=== PATIENT | male | born 1995 | race Caucasian/White ===

== ENCOUNTER 2024-03-02 00:05 | Emergency (ER) | payer BC, SELFPAY ==
--- NOTE | ~2024-03-02 | XR_ITS ---
XR hand RT min 3V 03/02/2024 00:58 INDICATION: Right hand pain PROCEDURE: 3 views right hand COMPARISON: No prior studies for comparison. FINDINGS: Fracture, dislocation or subluxation is not identified. The soft tissues appear within norm al limits. No foreign bodies are identified. IMPRESSION: 1: NO ACUTE BONE OR JOINT ABNORMALITY IDENTIFIED. Reviewed, dictated and finalized at location B.
[2024-03-02 00:13] VITALS: BP 144/99; PULSE 74; RESP 16; TEMP 36.8; O2SAT 99
[2024-03-02] MEDS: IBUPROFEN 400 MG TABLET 800 MG PO (00:22)
[2024-03-02] MEDS: ACETAMINOPHEN 500 MG TABLET 1000 MG PO (00:23)
--- NOTE | 2024-03-02 00:30 | ED.UPPEXIN ---
HPI - Extremity Injury (Upper) General Chief Complaint: Extremity Injury, Upper Stated Complaint: arm pain Time Seen by Provider: 03/02/24 00:10 Source: patient Mode of arrival: ambulatory Limitations: no limitations History of Present Illness HPI narrative: This is a 28-year-old male who presents to the ED for chief complaint of right 3rd digit injury occurring around 1900 tonight. Patient states he accidentally smashed his finger in the car door. Reports pain and swelling to the distal right 3rd digit. Denies any further sites of pain or injury. States that he did not take any NSAIDs because he read online that NSAIDs do not treat nerve pain. Reports that he has had shooting pains from his finger into his right arm. Related Data Allergies Allergy/AdvReac Type Severity Reaction Status Date / Time No Known Allergies Allergy Verified 03/02/24 00:19 Review of Systems Review of Systems: All systems as dictated in HPI Exam Narrative: GENERAL: Well-appearing, well-nourished, and in no acute distress. HEAD: Normocephalic, atraumatic. EYES: PERRLA and EOMI. ENT: Nares clear, no rhinorrhea or epistaxis. Mucous membranes moist. Oropharynx without tonsillar hypertrophy exudate or other lesions. NECK: Supple. No adenopathy or masses. CHEST: No respiratory distress. Clear to auscultation. No wheezes rales or rhonchi HEART: Regular rate and rhythm. No murmur heard. Normal peripheral pulses. ABDOMEN: Soft, nontender, nondistended, normal active bowel sounds. MSK: RUE: there is swelling and tenderness to the distal right 3rd digit. Very small subungual hematoma noted proximally. Range of motion is nearly full L UE: benign SKIN: Warm, dry, no rash. NEURO: Alert and oriented x4. No focal deficits. PSYCH: Normal mood and affect. Course Vital Signs Vital signs: Vital Signs Temperature 98.3 F 03/02/24 00:13 Pulse Rate 74 03/02/24 00:13 Respiratory Rate 16 03/02/24 00:13 Blood Pressure 144/99 H 03/02/24 00:13 Pulse Oximetry 99 03/02/24 00:13 Oxygen Delivery Room Air 03/02/24 00:13 Temperature 98.3 F 03/02/24 00:13 Pulse Rate 74 03/02/24 00:13 Respiratory Rate 16 03/02/24 00:13 Blood Pressure 144/99 H 03/02/24 00:13 Pulse Oximetry 99 03/02/24 00:13 Oxygen Delivery Room Air 03/02/24 00:13 MDM - Extremity Injury (Upper) MDM Narrative Medical decision making narrative: this is a 28-year-old male who presents to the ED for chief complaint of right 3rd finger injury after smashing in a car door tonight. Vitals are normal. No further site of injury. There is a subungual hematoma at the nail. Moderate tenderness. No deformity or nail bed injury. X-ray showed no obvious acute fracture. the subungual hematoma was drained using a Bovie. This provided moderate relief of symptoms. Short course of [place] given for breakthrough pain. Pt will be discharged in stable condition. Return precautions given and supportive measures discussed. Pt is understanding and agreeable with plan for discharge and follow-up with PCP. Discharge Plan Discharge Clinical Impression: Subungual hematoma of digit of hand, Finger injury Patient Disposition: Home, Self-Care Condition: Stable Instructions: Antibiotic Form, Subungual Hematoma (ED) Additional Instructions: your exam and imaging today is reassuring. Symptoms should resolve over the next couple of weeks. Take Tylenol and ibuprofen every 4-6 hours as needed for pain control. Please use Norcosparingly for breakthrough pain. If you have any new or worsening symptoms please return to the ER for further evaluation. Prescriptions: New hydrocodone-acetaminophen 5-325 mg tablet 1 tablet PO Q8H PRN (Reason: pain) Qty: 7 0RF Follow-up/Referrals: UNKNOWN,DOCTOR [Non-Staff] - Stand Alone Forms: Work/School Release IP Time of Disposition: 01:04
== END 2024-03-02 01:11 | disposition home or self-care (01) ==
PROVIDERS: Emergency Provider Physician Assistant; PCP Family Medicine
DX: S60.031A Contusion of right middle finger without damage to nail, initial encounter (principal); V48.4XXA Person boarding or alighting a car injured in noncollision transport accident, initial encounter
CPT/HCPCS: 29130; 73130; 99283; A9270

== ENCOUNTER 2025-03-11 19:35 | Emergency (ER) | payer BC, SELFPAY ==
--- OUTSIDE RECORDS SUMMARY | 2025-03-11 19:41 | XMS_ITS | Clinical Summary ---
Author Organization [facility] Address [address] [place] [address] Phone Care Team Providers Care Java Developer Name Role Phone Crow Ralph MD Primary Care Provider [phone] Social History Tobacco Use Types Packs/Day Years Used Date Smoking Tobacco: Never Assessed Sex and Gender Information Value Date Recorded Sex Assigned at Not on file Legal Sex Male 1:50 PM CDT Gender Identity Not on file Sexual Orientation Not on file Plan of Treatment Health Maintenance Due Date Last Done Comments Hepatitis C Virus (HCV) Screening 1996 Human Papillomavirus (HPV) Immunization (1 - 3-dose SCDM series) 2023 Influenza Immunization (#1) 2025 SARS-COV-2 Immunization (3 - season) 2025 01/05/2022, 12/14/2021 Respiratory Syncytial Virus (RSV) Immunization (Adult) (1 - 1-dose 75+ series) 2071 Hepatitis B Immunization Completed 997, 01/13/1997, 1996 TdaP Immunization Completed 12/14/2021 Meningococcal Immunization (ACWY) Aged Out No longer eligible b ased on patient's age to complete this topic Pneumococcal Immunization Combined Aged Out No longer eligible b ased on patient's age to complete this topic Rotavirus Immunization Aged Out No lo nger eligible based on patient's age to complete this topic Care Teams Java Developer Relationship Specialty [place] [address] [place], [place] [id number] PCP - General Family Medicine 02/09/24
--- OUTSIDE RECORDS SUMMARY | 2025-03-11 19:41 | XMS_ITS | Clinical Summary ---
Author Organization [facility] Address [address] [place] [address] Care Team Providers Care Facilities Director Name Role Phone Unavailable Primary Care Provider Unavailabl e Source Comments [facility],non-owned Affiliates and Associated Physician Practices is amultiple site organization consisting of ambulatory clinics and hospital sitesin [place], [place], [place] and [place]. This disclosure is being madepursuant to the Care Everywhere program and may not contain all information available regarding this patient. Last updated 18.[facility] [employer] Allergies No known active allergies Social History Tobacco Use Types Packs/Day Years Used Date Smoking Tobacco: Never Assessed Sex and Gender Information Value Date Recorded Sex Assigned at Not on file Legal Sex Male 10:59 PM CDT Gender Identity Not on file Sexual Orientation Not on file Last Filed Vital Signs Vital Sign Reading Time Taken Comments Blood Pressure 145/64 09/24/2023 11:03 PM CDT Pulse 86 09/24/2023 11:03 PM CDT Temperature 37 C (98.6 F) 09/24/2023 11:03 PM CDT Respiratory Rate 20 09/24/2023 11:03 PM CDT Oxygen Saturation 99% 09/24/2023 11:03 PM CDT Inhaled Oxygen Concentration - - Weight 79.4 kg (175 lb) 09/24/2023 11:03 PM CDT Height 182.9 cm (6') 09/24/2023 11:03 PM CDT Body Mass Index 23.73 09/24/2023 11:03 PM CDT Plan of Treatment Health Maintenance Due Date Last Done Comments HIV SCREENING 2011 HEPATITIS C SCREENING 08/25/2014 DTAP/TDAP/TD VACCINES (1 - Tdap) 2015 HEPATITIS B VACCINE (1 of 3 - 19+ 3-dose series) 2015 HPV VACCINE (1 - 3-dose SCDM series) 2023 COVID-19 VACCINE (1 - 2023-2 5 season) 2024 DEPRESSION SCREENING 07/03/2024 INFLUENZA VACCINE (#1) 2025 ZOSTER VACCINE (1 of 2) 2046 HIB VACCINE Aged Out No longer eligi ble based on patient's age to complete this topic MENINGOCOCCAL (Group B) VACC INE SHARED DECISION-MAKING Aged Out No longer eligibl e based on patient's age to complete this topic MENINGOCOCCAL GROUPS A/C/Y/W VACCINE Aged Out No longer eligible b ased on patient's age to complete this topic PNEUMOCOCCAL VACCINE Aged Out No long er eligible based on patient's age to complete this topic Insurance [facility] MEDICAID [facility] MEDICAID
[2025-03-11 19:44] VITALS: BP 134/89; PULSE 102; RESP 18; TEMP 37.1; O2SAT 99
--- NOTE | 2025-03-11 19:59 | ED_ITS ---
HPI - General Adult General Chief complaint: Nausea/Vomiting/Diarrhea Stated complaint: Vomiting/Diarrhea Source: patient Mode of arrival: ambulatory Limitations: no limitations History of Present Illness HPI narrative: Patient presents for evaluation of nausea vomiting and diarrhea for the last 3 days. Denies any new foods or medications. No fever, chills, blood in the stool, abdominal pain. No recent sick contacts to his knowledge. He called off from work tonight so came in for a work excuse. He plans on following a BRAT diet. He has contemplated taking imodium but has not done so. Related Data Allergies Allergy/AdvReac Type Severity Reaction Status Date / Time No Known Allergies Allergy Verified 03/11/25 19:44 Review of Systems Review of Systems: CONSTITUTIONAL: Denies fever, chills, or sweats. EYES: Denies visual changes, redness, or discharge. ENT: Denies rhinorrhea, congestion, sore throat, or otalgia. CARDIOVASCULAR: Denies chest pain, palpitations, or edema. RESPIRATORY: Denies cough or dyspnea. GASTROINTESTINAL: Reports nausea, vomiting, diarrhea. Denies abdominal pain GENITOURINARY: Denies dysuria or hematuria. SKIN: Denies rash or itching. MUSCULOSKELETAL: Denies back pain, joint pain, or myalgia. NEUROLOGIC: Denies headache, numbness, dizziness, or weakness. PSYCHIATRIC: Denies anxiety or depression. PMFSH Past Medical History Medical History No pertinent past medical history Surgical History Surgical History No pertinent past surgical history Family History Family History Mother Family history non-contributory Social History Social History (Updated 03/11/25 @ 20:01 by Patrice Bryant, INCOME TAX ANALYST, ) Gender identity (if verbalized by the patient): Male Spiritual care concerns: No Exam Narrative: GENERAL: Well-appearing, well-nourished, and in no acute distress. HEAD: Normocephalic, atraumatic. EYES: PERRLA and EOMI. ENT: Nares clear, no rhinorrhea or epistaxis. Mucous membranes moist. Oropharynx without tonsillar hypertrophy exudate or other lesions. Bilateral TMs pearly soriano nonbulging NECK: Supple. No adenopathy or masses. No carotid bruits or JVD CHEST: Clear to auscultation. No respiratory distress. No wheezes rales or rhonchi HEART: Regular rate and rhythm. No murmur heard. Normal peripheral pulses. ABDOMEN: Soft, nontender, nondistended, normal active bowel sounds. EXTREMITIES: Normal range of motion. No edema. SKIN: Warm, dry, no rash. NEURO: No focal deficits. Alert and oriented x3. PSYCH: Normal mood and affect. Course Course Emergency Course: This is a 29-year-old male who presented for evaluation of nausea, vomiting, diarrhea. He has no abdominal tenderness to suggest colitis. He appears well clinically. Vital signs are stable. Encouraged increased fluid intake. Will discharge with Zofran. Imodium or Pepto-Bismol may help. Follow brat diet. Go ro the ER for worsening symptoms. Patient in agreement with plan of care. Level of Care: Express Care Visit Vital Signs Vital signs: Vital Signs Temperature 37.1 C 03/11/25 19:44 Pulse Rate 102 H 03/11/25 19:44 Respiratory Rate 18 03/11/25 19:44 Blood Pressure 134/89 03/11/25 19:44 Pulse Oximetry 99 03/11/25 19:44 Oxygen Delivery Room Air 03/11/25 19:44 Temperature 37.1 C 03/11/25 19:44 Pulse Rate 102 H 03/11/25 19:44 Respiratory Rate 18 03/11/25 19:44 Blood Pressure 134/89 03/11/25 19:44 Pulse Oximetry 99 03/11/25 19:44 Oxygen Delivery Room Air 03/11/25 19:44 Medical Decision Making Vital Signs Vital Signs: Vital Signs Temperature 37.1 C 03/11/25 19:44 Pulse Rate 102 H 03/11/25 19:44 Respiratory Rate 18 03/11/25 19:44 Blood Pressure 134/89 03/11/25 19:44 Pulse Oximetry 99 03/11/25 19:44 Oxygen Delivery Room Air 03/11/25 19:44 Temperature 37.1 C 03/11/25 19:44 Pulse Rate 102 H 03/11/25 19:44 Respiratory Rate 18 03/11/25 19:44 Blood Pressure 134/89 03/11/25 19:44 Pulse Oximetry 99 03/11/25 19:44 Oxygen Delivery Room Air 03/11/25 19:44 Discharge Plan Discharge Clinical Impression: Nausea & vomiting, Diarrhea Patient Disposition: Home Condition: Stable Instructions: Antibiotic Form, Acute Nausea and Vomiting (DC), Acute Diarrhea (ED) Additional Instructions: MAKE SURE TO STAY WELL HYDRATED PEPTOBISMOL MAY HELP DIARRHEA FOLLOW BRAT DIET Patient Language: Yoruba Prescriptions: New ondansetron 4 mg tablet,disintegrating 4 mg PO Q8H Qty: 15 0RF Follow-up/Referrals: Herve Tadeo MD [Physician, Family Practice] Stand Alone Forms: Work/School Release IP Time of Disposition: 19:58
== END 2025-03-11 20:01 | disposition home or self-care (01) ==
PROVIDERS: Emergency Provider Nurse Practitioner
DX: R11.2 Nausea with vomiting, unspecified (principal); R19.7 Diarrhea, unspecified
CPT/HCPCS: 99213; G0463